=== PATIENT | male | born 1960 | race Caucasian/White ===

== ENCOUNTER 2024-05-31 13:14 | Inpatient (IN) | payer OTHER ==
[2024-05-31] MEDS ORDERED: morphine SULFATE 4 MG/ML VIAL ONE ×2 (13:45→16:12)
[2024-05-31] MEDS ORDERED: ONDANSETRON 4 MG/2 ML VIAL ONE ×2 (13:45→21:35)
[2024-05-31] MEDS: ONDANSETRON 4 MG/2 ML VIAL IVPUSH ONE ×2 (14:12→21:38)
[2024-05-31] MEDS: morphine CARPU-JECT 4 MG/1 ML DISP.SYRIN IVPUSH ONE ×2 (14:12→16:19)
[2024-05-31 14:41] LABS: BASO % 0.4 % (0-2.0); EOS % 1.7 % (0-4.5); HEMATOCRIT 43.9 % (35.4-49); HEMOGLOBIN 14.6 GM/dL (11.7-16.9); MCH 27.7 pg (25.7-33.7); MCHC 33.3 g/dl (32.0-35.9); MEAN PLT VOLUME 9.9 fl (7.5-11.1); MONO % 5.7 % (3.8-10.2); NEUT % 75.2 % (42.8-82.8); PH,URINE 6.5 (5.0-8.0); PLATELET COUNT 175 10^3/uL (134-434); RBC 5.29 M/mm3 (4.00-5.60); RDW 13.5 % (11.9-15.9); URINE APPEARANCE CLEAR; URINE BILIRUBIN NEGATIVE (NEGATIVE); URINE COLOR YELLOW; URINE GLUCOSE (UA) NEGATIVE (NEGATIVE); URINE KETONE NEGATIVE (NEGATIVE); URINE LEUK ESTERASE NEGATIVE (NEGATIVE); URINE NITRITE NEGATIVE (NEGATIVE); URINE PROTEIN NEGATIVE (NEGATIVE); WHITE BLOOD COUNT 6.8 K/mm3 (4.0-10.0)
[2024-05-31 14:48] LABS: INR 1.12 (0.83-1.09); PROTHROMBIN TIME (PATIENT) 12.3 SEC (9.7-13.0)
[2024-05-31 14:51] LABS: ACTIVATED PTT 36.2 SECONDS (25.2-36.5)
[2024-05-31 14:57] LABS: POTASSIUM 4.1 mmol/L (3.5-5.1)
[2024-05-31 14:59] LABS: ALBUMIN 4.1 g/dl (3.4-5.0); BLOOD UREA NITROGEN 12.3 mg/dL (7-18); CALCIUM 9.5 mg/dL (8.5-10.1)
[2024-05-31 15:03] LABS: CREATININE 1.1 mg/dL (0.55-1.3)
[2024-05-31 15:04] LABS: BILIRUBIN,TOTAL 3.2 mg/dL (0.2-1); TOT PROT 7.8 g/dl (6.4-8.2)
[2024-05-31] MEDS: SODIUM CHLORIDE 0.9% 500 ML INFUS.BAG IV ONE ×2 (15:47→17:20)
[2024-05-31] MEDS ORDERED: HYDROmorphone HCL CARPU-JECT 2 MG/1 ML DISP.SYRIN ONE (17:53)
[2024-05-31] MEDS: HYDROmorphone HCl 2 MG/ML VIAL IVPUSH ONE (17:56)
[2024-05-31] MEDS: SODIUM CHLORIDE 1,000 ML IV SCH (20:45)
[2024-05-31] MEDS: MELATONIN 5 MG TABLETS PO ONE (22:52)
[2024-05-31 23:28] VITALS: BMI 29.5
[2024-06-01 09:31] LABS: BASO % 0.3 % (0-2.0); EOS % 0.7 % (0-4.5); HEMOGLOBIN 13.2 GM/dL (11.7-16.9); LYMPH % 12.3 % (8-40); MCH 27.3 pg (25.7-33.7); MCHC 32.1 g/dl (32.0-35.9); MEAN CELL VOLUME 84.9 fl (80-96); MEAN PLT VOLUME 10.2 fl (7.5-11.1); NEUT % 80.7 % (42.8-82.8); PLATELET COUNT 162 10^3/uL (134-434); RBC 4.83 M/mm3 (4.00-5.60); RDW 13.3 % (11.9-15.9); WHITE BLOOD COUNT 7.8 K/mm3 (4.0-10.0)
[2024-06-01 09:32] LABS: INR 1.23 (0.83-1.09); PROTHROMBIN TIME (PATIENT) 13.4 SEC (9.7-13.0)
[2024-06-01 09:35] LABS: ACTIVATED PTT 34.7 SECONDS (25.2-36.5)
[2024-06-01 09:43] LABS: POTASSIUM 3.9 mmol/L (3.5-5.1)
[2024-06-01 09:45] LABS: CALCIUM 8.6 mg/dL (8.5-10.1)
[2024-06-01 09:46] LABS: ALBUMIN 3.6 g/dl (3.4-5.0); BLOOD UREA NITROGEN 15.3 mg/dL (7-18); MAGNESIUM 1.9 mg/dL (1.8-2.4)
[2024-06-01 09:49] LABS: CREATININE 0.9 mg/dL (0.55-1.3); PHOSPHOROUS 2.8 mg/dL (2.5-4.9)
[2024-06-01 09:50] LABS: BILIRUBIN,TOTAL 3.7 mg/dL (0.2-1); TOT PROT 6.6 g/dl (6.4-8.2)
[2024-06-01] MEDS: ACETAMINOPHEN 325 MG TABLET (FP) PO ONE (17:47)
[2024-06-02] MEDS: ACETAMINOPHEN 325 MG TABLET (FP) PO STA (00:33)
[2024-06-02] MEDS: MELATONIN 5 MG TABLETS PO ONE (01:53)
[2024-06-02] MEDS ORDERED: IBUPROFEN 800 MG/8 ML IJ IVPB PRN ×2 (08:30→14:02)
[2024-06-02 08:58] LABS: HEMATOCRIT 39.8 % (35.4-49); HEMOGLOBIN 13.3 GM/dL (11.7-16.9); MCHC 33.6 g/dl (32.0-35.9); MEAN CELL VOLUME 83.6 fl (80-96); MEAN PLT VOLUME 10.1 fl (7.5-11.1); PLATELET COUNT 140 10^3/uL (134-434); RBC 4.76 M/mm3 (4.00-5.60); RDW 13.8 % (11.9-15.9); WHITE BLOOD COUNT 8.9 K/mm3 (4.0-10.0)
[2024-06-02 09:43] LABS: POTASSIUM 3.7 mmol/L (3.5-5.1)
[2024-06-02 09:45] LABS: ALBUMIN 3.6 g/dl (3.4-5.0); BLOOD UREA NITROGEN 14.5 mg/dL (7-18); CALCIUM 8.6 mg/dL (8.5-10.1)
[2024-06-02 09:49] LABS: CREATININE 0.9 mg/dL (0.55-1.3)
[2024-06-02 09:50] LABS: TOT PROT 6.8 g/dl (6.4-8.2)
[2024-06-02 09:58] LABS: BILIRUBIN,TOTAL 1.2 mg/dL (0.2-1)
[2024-06-02] MEDS: MEROPENEM-0.9% SODIUM CHLORIDE 1 GM/50 ML BAG IVPB SCH ×2 (10:15→17:55)
[2024-06-02] MEDS: SODIUM CHLORIDE 1,000 ML IV SCH ×2 (10:15→17:15)
[2024-06-02] MEDS ORDERED: BUPIVACAINE HCL/PF 0.25% (2.5MG/ML) 10 ML VIAL ONE (10:19)
[2024-06-02] MEDS ORDERED: MIDAZOLAM HCL 2 MG/2 ML SINGLE DOSE VIAL ONE (11:11)
[2024-06-02] MEDS ORDERED: ROCURONIUM BROMIDE 50 MG/5 ML SYRINGE ONE (11:11)
[2024-06-02] MEDS ORDERED: PROPOFOL 40 ML ONE (11:11)
[2024-06-02] MEDS: BUPIVACAINE HCL/PF 0.25% (2.5MG/ML) 10 ML VIAL IJ ONE (11:45)
[2024-06-02] MEDS ORDERED: GLUCAGON 1 MG KIT ONE (12:28)
[2024-06-02] MEDS: GLUCAGON 1 MG KIT IVPUSH ONE (12:30)
[2024-06-02] MEDS ORDERED: ONDANSETRON 4 MG/2 ML VIAL IVPUSH PRN ×2 (13:42→14:02)
[2024-06-02] MEDS ORDERED: oxyCODONE HCL 5 MG TABLET PO PRN ×2 (14:02)
[2024-06-03 08:36] VITALS: RESP 18
[2024-06-03 08:40] LABS: HEMATOCRIT 36.3 % (35.4-49); HEMOGLOBIN 11.7 GM/dL (11.7-16.9); MCH 27.3 pg (25.7-33.7); MCHC 32.1 g/dl (32.0-35.9); MEAN CELL VOLUME 84.8 fl (80-96); MEAN PLT VOLUME 10.1 fl (7.5-11.1); PLATELET COUNT 139 10^3/uL (134-434); RBC 4.28 M/mm3 (4.00-5.60); RDW 13.5 % (11.9-15.9); WHITE BLOOD COUNT 8.2 K/mm3 (4.0-10.0)
[2024-06-03 08:57] LABS: POTASSIUM 3.8 mmol/L (3.5-5.1)
[2024-06-03 08:58] LABS: CALCIUM 7.7 mg/dL (8.5-10.1)
[2024-06-03 08:59] LABS: BLOOD UREA NITROGEN 14.8 mg/dL (7-18)
[2024-06-03 09:02] LABS: CREATININE 0.8 mg/dL (0.55-1.3)
[2024-06-03 09:04] LABS: BILIRUBIN,TOTAL 0.7 mg/dL (0.2-1); TOT PROT 5.8 g/dl (6.4-8.2)
[2024-06-03 12:14] VITALS: BP 126/78; PULSE 78; TEMP 99
== END 2024-06-03 14:05 | disposition home or self-care (01) | DRG 263 ==
LOC: JER 13:14 → JERBED 19:30 → J8W 22:13
PROVIDERS: ADMIT Internal Medicine; ATTEND Family Medicine
PROC: BF11YZZ Fluoroscopy of Biliary and Pancreatic Ducts using Other Contrast (ICD-10-PCS; 2024-06-02)
PROC: 0FT44ZZ Resection of Gallbladder, Percutaneous Endoscopic Approach (ICD-10-PCS; principal; 2024-06-02 11:15)
DX: K80.00 Calculus of gallbladder with acute cholecystitis without obstruction (principal); N40.0 Benign prostatic hyperplasia without lower urinary tract symptoms; K85.10 Biliary acute pancreatitis without necrosis or infection; R79.89 Other specified abnormal findings of blood chemistry; K76.0 Fatty (change of) liver, not elsewhere classified; E80.6 Other disorders of bilirubin metabolism; R10.11 Right upper quadrant pain
CPT/HCPCS: 36415; 71045-TC-FY; 74181-TC; 76000-TC-FY; 76705-TC; 80053; 81003; 82248; 83690; 83735; 84100; 84478; 85025; 85027; 85610; 85730; 86850; 86900; 86901; 87040; 87086; 88304-TC; 93005; 93010; 94010; 94760; 97116-GP; 97161-GP; 99285-25